=== PATIENT | male | born 1975 | race Caucasian/White ===

== ENCOUNTER 2022-01-30 07:01 | Day surgery (SDC) | payer OTHER ==
[2022-01-26 17:20] VITALS: BMI 30.1
[2022-01-30] MEDS ORDERED: ROPIVACAINE HCL/PF 100 MG/20 ML VIAL ONE (08:54)
[2022-01-30] MEDS ORDERED: MIDAZOLAM HCL 2 MG/2 ML SINGLE DOSE VIAL ONE (08:54)
[2022-01-30] MEDS ORDERED: DEXAMETHASONE SOD PHOSPHATE 10 MG/1 ML VIAL ONE (09:17)
[2022-01-30] MEDS ORDERED: PROPOFOL 20 ML ONE (09:23)
[2022-01-30] MEDS ORDERED: SUCCINYLCHOLINE CHLORIDE 200 MG/10 ML SYRINGE ONE (09:24)
[2022-01-30] MEDS ORDERED: BUPIVACAINE HCL/EPINEPHRINE/PF 30 ML VIAL IJ ONE (09:40)
[2022-01-30] MEDS ORDERED: oxyCODONE HCL 5 MG TABLET PO PRN ×2 (11:54)
[2022-01-30] MEDS ORDERED: ACETAMINOPHEN 500 MG TABLET (FP) PO SCH (12:00)
[2022-01-30] MEDS ORDERED: ONDANSETRON 4 MG/2 ML VIAL IVPUSH ONE ×2 (12:07→12:12)
[2022-01-30 13:45] VITALS: BP 119/65; PULSE 66; TEMP 97.8
== END 2022-01-30 15:34 | disposition home or self-care (01) ==
LOC: FASU 07:01
PROVIDERS: ATTEND Orthopaedic Surgery
PROC: 0LS40ZZ Reposition Left Upper Arm Tendon, Open Approach (ICD-10-PCS; 2022-01-30)
PROC: 0LQ24ZZ Repair Left Shoulder Tendon, Percutaneous Endoscopic Approach (ICD-10-PCS; principal; 2022-01-30 10:21)
PROC: 0RNK4ZZ Release Left Shoulder Joint, Percutaneous Endoscopic Approach (ICD-10-PCS; 2022-01-30 10:21)
PROC: 0RBK4ZZ Excision of Left Shoulder Joint, Percutaneous Endoscopic Approach (ICD-10-PCS; 2022-01-30 10:21)
DX: M75.112 Incomplete rotator cuff tear or rupture of left shoulder, not specified as traumatic (principal); M66.812 Spontaneous rupture of other tendons, left shoulder; S43.432A Superior glenoid labrum lesion of left shoulder, initial encounter; X58.XXXA Exposure to other specified factors, initial encounter; Y93.9 Activity, unspecified; Y92.9 Unspecified place or not applicable; M94.212 Chondromalacia, left shoulder; M65.812 Other synovitis and tenosynovitis, left shoulder; M75.02 Adhesive capsulitis of left shoulder
CPT/HCPCS: 88304-TC; 94760; J1100

== ENCOUNTER 2022-02-05 13:45 | Emergency (ER) | payer OTHER ==
[2022-02-05 14:24] VITALS: BP 130/65; PULSE 99; TEMP 99.8; BMI 36.2
[2022-02-06 12:08] LABS: SARS-CoV-2 NAA Not Detected (Not Detected)
== END 2022-02-05 14:40 | disposition home or self-care (01) ==
LOC: FER 13:45
DX: R05.1 Acute cough (principal)
CPT/HCPCS: 71046-TC-FY; 99284-25; C9803-CS; U0003; U0005

== ENCOUNTER 2023-04-16 17:53 | Emergency (ER) | payer OTHER ==
[2023-04-16 18:00] VITALS: BP 139/87; PULSE 87; RESP 18; TEMP 98.2; BMI 29.7
== END 2023-04-16 21:10 | disposition home or self-care (01) ==
LOC: JERFT 17:53
DX: S90.02XA Contusion of left ankle, initial encounter (principal); R22.42 Localized swelling, mass and lump, left lower limb; X50.1XXA Overexertion from prolonged static or awkward postures, initial encounter
CPT/HCPCS: 73610-TC-LT-FY; 73630-TC-LT; 99283-25